=== PATIENT | male | born 1985 | race African-American/Black ===

== ENCOUNTER 2017-11-20 16:28 | Emergency (ER) | payer SELFPAY | END 2017-11-20 17:21 | disposition left against medical advice (07) | LOC: ERS 16:28 | DX: Z53.21 Procedure and treatment not carried out due to patient leaving prior to being seen by health care provider (principal) ==

== ENCOUNTER 2019-08-15 11:21 | Emergency (ER) | payer OTHER, SELFPAY ==
[2019-08-16 15:34] LABS: SARS-CoV-2 MS2 Positive; SARS-CoV-2 N Gene Negative; SARS-CoV-2 S Gene Negative; SARS-CoV-2 orf1ab Negative
== END 2019-08-15 12:20 | disposition home or self-care (01) ==
LOC: ERS 11:21
DX: J02.9 Acute pharyngitis, unspecified (principal); R51 Headache; R06.02 Shortness of breath; Z20.828 Contact with and (suspected) exposure to other viral communicable diseases
CPT/HCPCS: 87635; 99284; U0003